=== PATIENT | male | born 1940 | race Caucasian/White ===

== ENCOUNTER 2016-08-08 11:08 | Inpatient (IN) | payer MEDICARE, BC ==
[2016-08-02 16:54] LABS: BASOPHILS 0.2 %; BASOPHILS ABSOLUTE 0.01 10/3/uL (0.0-0.16); EOSINOPHILS 1.4 %; EOSINOPHILS ABSOLUTE 0.09 10/3/uL (0.0-0.53); HEMATOCRIT 38.1 % (40.0-51.0); HEMOGLOBIN 13.2 g/dL (13.6-17.8); IMMATURE GRANULOCYTES 0.2 %; IMMATURE GRANULOCYTES ABSOLUTE 0.01 10/3/uL (0.0-0.11); LYMPHOCYTES 19.9 %; LYMPHOCYTES ABSOLUTE 1.26 10/3/uL (0.67-4.30); MEAN CORPUS HGB CONC 34.6 g/dL (32.0-36.0); MEAN CORPUSCULAR HEMOGLOB 33.2 pg (26.0-34.0); MEAN PLATELET VOLUME 10.9 fL (9.2-13.0); MONOCYTES 7.7 %; MONOCYTES ABSOLUTE 0.49 10/3/uL (0.21-1.20); NEUTROPHILS 70.6 %; NEUTROPHILS ABSOLUTE 4.47 10/3/uL (2.02-8.40); PLATELET COUNT 167 10/3/uL (150-400); RBC DISTRIBUTION WIDTH 12.4 % (12.0-16.0); RED CELL COUNT 3.97 10/6/uL (4.7-6.1); WHITE BLOOD CELLS 6.3 10/3/uL (4.5-10.5)
[2016-08-02 16:55] LABS: MANUAL DIFF NO %
[2016-08-02 17:16] LABS: BUN (BLOOD UREA NITROGEN) 22 MG/DL (6-23); CALCIUM, SERUM 8.7 MG/DL (8.5-10.4); CHLORIDE, SERUM 108 MMOL/L (96-112); CO2 (CARBON DIOXIDE) 25 MMOL/L (24-34); CREATININE 0.93 MG/DL (0.70-1.30); GFR AFRICAN AMERICAN 91 ML/MIN (>=60); GFR NON AFRICAN AMERICAN 78 ML/MIN (>=60); GLUCOSE, SERUM 112 MG/DL (60-99); POTASSIUM, SERUM 3.8 MMOL/L (3.5-5.3); SODIUM, SERUM 143 MMOL/L (135-148)
--- NOTE | ~2016-08-08 | OP ---
Record Of Operation [facility] [address] [place]. [address] NAME: JUANCARLOS PÉREZ : 36 STATUS : ADM IN PAT#: [id number] AGE: 76 ADM/REG DATE : 08/08/16 MR#: [id number] REPORT SERV DATE: 08/08/16 DICTATED BY: ANIBAL GALICIA DATE: 08/08/16 REPORT STATUS : Draft TRANSCRIBED BY: MODL DATE: 08/08/16 DATE OF PROCEDURE: 08/08/2016 PREOPERATIVE DIAGNOSIS: High-grade right carotid stenosis. POSTOPERATIVE DIAGNOSIS: High-grade right carotid stenosis. PROCEDURE: Right carotid endarterectomy. SURGEON: Anibal Galicia M.D. FELLOW: Harpal. CHE[employer]CAKE ROLLER: Hugo. ANESTHESIA: General. COMPLICATIONS: None. BLOOD LOSS: 150 mL. HISTORY: The patient is a 76-year-old male with a high-grade right carotid stenosis. Thought he would benefit from right carotid endarterectomy. This was discussed in detail with the patient and family. They expressed understanding and desired to proceed. DESCRIPTION OF PROCEDURE: The patient was taken to the operating room and placed in the supine position. He was given general anesthesia without complication. Rolls were placed under his shoulders. Head was turned to the left. An incision was created on the anterior border of the sternocleidomastoid muscle taking care to be more than one fingerbreadth away from the angle of the mandible. Bovie cautery was used to dissect through the subcutaneous tissues and platysma. Dissection was continued to identify the sternocleidomastoid muscle and dissection continued on the anterior border. The internal jugular vein was identified. There were multiple large vein branches which were freed circumferentially, ligated with silk ties and divided. Once ligated, the internal jugular vein was dissected on its anterior aspect and brought laterally exposing the carotid artery. The vagus nerve was identified and preserved. The common carotid artery was identified, freed circumferentially, and isolated with a vessel loop. The patient was given 6000 units of heparin intravenously. The internal carotid artery was freed circumferentially and isolated with a vessel loop beyond the area of disease. The external carotid and superior thyroid arteries were freed circumferentially and isolated with a vessel loop as well. After more than three minutes of heparinization, the internal carotid artery was controlled with a vessel loop, followed by the common carotid artery, external carotid artery, and superior thyroid arteries. 11 blade used to create an arteriotomy on the common carotid artery. This was extended longitudinally into the internal carotid artery beyond the area of disease. A 12 shunt was placed into the internal carotid artery. Once good back bleeding was noted, this was placed into the common carotid artery restoring flow to the brain. Record Of Operation [facility] [address] [place]. [address] NAME: JUANCARLOS PÉREZ : 36 STATUS : ADM IN PAT#: [id number] AGE: 76 ADM/REG DATE : 08/08/16 MR#: [id number] REPORT SERV DATE: 08/08/16 DICTATED BY: ANIBAL GALICIA DATE: 08/08/16 REPORT STATUS : Draft TRANSCRIBED BY: MODKristin DATE: 08/08/16 Endarterectomy was performed in standard fashion with feathering of the proximal and distal end point and eversion endarterectomy on the external carotid and superior thyroid arteries. The endarterectomy site was copiously irrigated. All loose debris was removed. Once this was felt to be adequate, the arteriotomy was closed using 8 x 8 bovine pericardial patch and running 6-0 Prolene suture. Prior to completion, the shunt was pulled from the lateral aspect. The internal external carotid arteries were back bled. The common carotid artery was flushed. The endarterectomy site was copiously irrigated. The closure was completed and flow restored to the external carotid artery then after more than five heartbeats to the internal carotid artery. Bleeding points along the closure were controlled with 6-0 Prolene suture. Doppler confirmed normal signals in the common carotid, external carotid, and internal carotid arteries. Once hemostasis was assured, Fibrillar was placed over the patch. The deep tissues and platysma were closed with 2-0 Vicryl suture. The skin was closed 4-0 Monocryl suture. Dermabond dressing was applied. The patient tolerated the procedure well. He will be extubated in the operating room and if nephrologically intact, taken to recovery. KATE/MARK Anibal Galicia M.D. / [id number] CC: Anibal Galicia M.D.
[~2016-08-08 11:08] MED LIST: ACET500CAP PO; ADVIL PO; ASAB PO; ATORVASTIN PO; GLUCPH PO; PROTONIX PO; VITAMIN D31000 UNIT PO; ZOL100 PO
[2016-08-09] MEDS ORDERED: PCET PO (09:43)
== END 2016-08-09 10:41 | disposition home or self-care (01) | DRG 39 ==
LOC: SDC/OF 11:08 → PACU 16:19 → CVICU 17:35
PROVIDERS: Surgery
PROC: 03UK0KZ Supplement Right Internal Carotid Artery with Nonautologous Tissue Substitute, Open Approach (ICD-10-PCS; 2016-08-08)
PROC: 03CK0ZZ Extirpation of Matter from Right Internal Carotid Artery, Open Approach (ICD-10-PCS; principal; 2016-08-08 13:15)
DX: I65.21 Occlusion and stenosis of right carotid artery (principal); E11.9 Type 2 diabetes mellitus without complications; E78.5 Hyperlipidemia, unspecified; Z79.82 Long term (current) use of aspirin; Z86.718 Personal history of other venous thrombosis and embolism
CPT/HCPCS: 80048; 82962; 85025; 87641; 88304; 88311; 93005; A9270-GY; J2250; J2370; J2405; J2710; J3010